=== PATIENT | male | born 1990 | race Caucasian/White ===

== ENCOUNTER 2018-07-08 08:35 | Emergency (ER) | payer OTHER ==
[~2018-07-08] VITALS: Wt 66.2 kg
[~2018-07-08 08:35] MED LIST: ANAPROX DS550 MG PO; NKHM
[2018-07-08] MEDS ORDERED: PRINIVIL10 MG PO (08:42)
[2018-07-08 09:04] LABS: BASO % 0.2 % (0.0-1.0); EOS % 0.3 % (1.0-4.0); LYMPH # 0.6 10*3/uL (1.3-4.4); LYMPH % 5.1 % (27.0-41.0); MEAN CELL VOLUME 95.8 fl (80.0-94.0); MEAN CORPUSCULAR HGB 33.4 pg (27.0-31.0); MEAN CORPUSCULAR HGB CONC 34.9 g/dl (33.0-37.0); MEAN PLATELET VOLUME 10.5 fl (9.6-12.3); MONO % 8.6 % (3.0-9.0); NEUT # 9.6 10*3/uL (2.3-7.9); NEUT % 85.3 % (47.0-73.0); PLATELET COUNT AUTOMATED 144 10*3/uL (130-400); RED BLOOD COUNT 4.49 10*6/uL (4.50-5.90); RED CELL DISTRI WIDTH 12.4 % (0-14.5); WHITE BLOOD COUNT 11.2 10*3/uL (4.8-10.8)
[2018-07-08 09:19] LABS: ALBUMIN 4.1 gm/dl (3.1-4.5); ALKALINE PHOSPHATASE 80 U/L (45-117); BUN 15 mg/dl (7-24); CHLORIDE 102 mmol/L (98-107); CREATININE 1.24 mg/dL (0.70-1.30); SGOT/AST 25 IU/L (3-35); SGPT/ALT 45 U/L (12-78); SODIUM 137 mmol/L (136-145); TOTAL PROTEIN 7.8 gm/dL (6.4-8.2)
[2018-07-08] MEDS ORDERED: ZOFRAN4 MG PO (09:57)
== END 2018-07-08 11:43 | disposition home or self-care (01) ==
LOC: ED 08:35
PROVIDERS: Family Medicine
DX: K52.9 Noninfective gastroenteritis and colitis, unspecified (principal); Z79.899 Other long term (current) drug therapy

== ENCOUNTER 2019-11-20 16:08 | Emergency (ER) | payer OTHER ==
[~2019-11-20] VITALS: Wt 106.1 kg
[~2019-11-20 16:08] MED LIST changes: +PRINIVIL10 MG PO; +ZOFRAN4 MG PO
[2019-11-20] MEDS ORDERED: CEPHALEXIN500 M1 PO (17:35)
== END 2019-11-20 17:39 | disposition home or self-care (01) ==
LOC: ED 16:08
DX: S61.216A Laceration without foreign body of right little finger without damage to nail, initial encounter (principal); Z79.899 Other long term (current) drug therapy; W25.XXXA Contact with sharp glass, initial encounter; Y93.89 Activity, other specified; Y92.89 Other specified places as the place of occurrence of the external cause; Y99.0 Civilian activity done for income or pay

== ENCOUNTER 2019-11-27 07:27 | Emergency (ER) | payer OTHER ==
[~2019-11-27] VITALS: Ht 190.5 cm; Wt 106.1 kg
[~2019-11-27 07:27] MED LIST changes: +CEPHALEXIN500 M1 PO
== END 2019-11-27 08:55 | disposition home or self-care (01) ==
LOC: ED 07:27
DX: S61.411D Laceration without foreign body of right hand, subsequent encounter (principal); Z48.02 Encounter for removal of sutures; Z79.899 Other long term (current) drug therapy; X58.XXXD Exposure to other specified factors, subsequent encounter

== ENCOUNTER 2023-04-22 17:30 | Emergency (ER) | payer OTHER ==
[2023-04-22] MEDS ORDERED: SILVER SULFADIAZINE 25 GM TUBE T ONE (17:40)
[2023-04-22] MEDS ORDERED: Ketorolac Tromethamine 30 MG/ML VIAL IM ONE (17:40)
[2023-04-22] MEDS ORDERED: Acetaminophen/Hydrocodone 5 MG/325 MG TABLET PO ONE (17:40)
[2023-04-22] MEDS ORDERED: Ketorolac Tromethamine 30 MG/ML VIAL IV ONE (17:50)
[2023-04-22] MEDS ORDERED: HYDROCODONE-AC1 EAC1 PO (19:03)
[2023-04-22] MEDS ORDERED: SILVADENE20 GM T (19:03)
[2023-04-23] MEDS ORDERED: CEPHALEXIN500 M1 PO (12:41)
== END 2023-04-22 18:50 | disposition home or self-care (01) ==
LOC: ED 17:30
DX: T20.27XA Burn of second degree of neck, initial encounter (principal); T31.0 Burns involving less than 10% of body surface; I10 Essential (primary) hypertension; Z98.890 Other specified postprocedural states; X08.8XXA Exposure to other specified smoke, fire and flames, initial encounter; Y93.89 Activity, other specified; Y92.89 Other specified places as the place of occurrence of the external cause; Y99.0 Civilian activity done for income or pay